=== PATIENT | female | born 1980 | race African-American/Black ===

== ENCOUNTER 2017-06-30 19:48 | Emergency (ER) | payer OTHER ==
[~2017-06-30] VITALS: Ht 172.7 cm; Wt 99.8 kg
[~2017-06-30 19:48] MED LIST: BACTRIM DS TAB1 EACH PO; CITRATE OF MAG296 ML PO; COLACE 100 MG100 MG PO; DOXYCYCLINE 10100 MG PO; IBUPROFEN 600600 M1 PO; MOBIC15 MG PO; NOHOMEMEDICATIONS; NORCO 5-325 TA1 EACH PO; NORFLEX100 MG PO; PHENERGAN 25 MG25 M1 PO; POTASSIUM20 PO; TRAMADOL 50 MG50 MG PO; VALIUM2 MG PO
[2017-06-30 20:25] VITALS: BP 158/96
== END 2017-06-30 20:27 | disposition home or self-care (01) ==
LOC: ER 19:48
DX: S00.83XA Contusion of other part of head, initial encounter (principal); F10.99 Alcohol use, unspecified with unspecified alcohol-induced disorder; F17.210 Nicotine dependence, cigarettes, uncomplicated; Y04.2XXA Assault by strike against or bumped into by another person, initial encounter; Y93.89 Activity, other specified; Y92.89 Other specified places as the place of occurrence of the external cause; Y99.8 Other external cause status

== ENCOUNTER 2017-07-31 16:56 | Emergency (ER) | payer OTHER ==
[~2017-07-31] VITALS: Ht 172.7 cm; Wt 72.6 kg
[2017-07-31 18:21] LABS: BASOPHILS 0.8 % (0.0-2.0); EOSINOPHILS 0.8 % (0.0-3.0); HEMATOCRIT 38.9 % (37.0-47.0); HEMOGLOBIN 12.4 gm/dL (12.0-15.0); LYMPHOCYTES 27.3 % (24.0-44.0); MCV 84.5 fL (80.0-100.0); MONOCYTES 7.8 % (1.0-8.0); PLATELET COUNT 199 thou/uL (150-400); POLYS 63.3 % (36.0-66.0); RDW 13.7 % (10.5-14.5); WBC 6.3 thou/uL (4.0-11.0)
[2017-07-31 18:23] LABS: MANUAL DIFF NO
[2017-07-31 18:29] LABS: CALCIUM 9.6 mg/dL (8.5-10.1); POTASSIUM 3.5 mmol/L (3.5-5.1)
[2017-07-31 19:42] LABS: ESR (SEDRATE) 14 mm/hr (0-20)
[2017-07-31 20:44] VITALS: BP 144/88
== END 2017-07-31 20:45 | disposition home or self-care (01) ==
LOC: ER 16:56
PROVIDERS: Emergency Medicine
DX: R51 Headache (principal); F17.210 Nicotine dependence, cigarettes, uncomplicated; F10.99 Alcohol use, unspecified with unspecified alcohol-induced disorder; Z85.53 Personal history of malignant neoplasm of renal pelvis